=== PATIENT | male | born 1950 | race Two or more races ===

== ENCOUNTER 2017-12-24 17:54 | Emergency (ER) | payer OTHER ==
[2017-12-24] MEDS ORDERED: IBUPROFEN 600 MG TAB PO ONE (19:50)
--- NOTE | 2017-12-24 20:12 | EDPHY ---
H & P Time Seen by Provider: 12/24/17 20:11 HPI/ROS: Chief complaint. Fall HPI. Patient is a 59-year-old male trip and fall while at work today. Struck his chin his right knee his left palm in his left chest. He thinks he may be briefly lost consciousness. He has no dental trauma. Has no neck pain. He has left thoracic pain. He was caring markers in his pocket and fell on them so has pain in his left anterior chest. No shortness of breath. No abdominal pain. Abrasion to right knee but has been walking on it. Bruising to the base of the left thumb on the palm of the hand with painful range of motion. He is alert and conversational without change in vision ROS Constitutional. no fever/chills, no weakness Eyes. no problems with vision ENT. no sore throat, no nasal drainage Cardiovascular. chest pain on left Respiratory. no shortness of breath, no cough Abdominal. no abdominal pain, no nausea/vomiting, no diarrhea . no problems urinating MS. Abrasion right knee. Bruising base of thumb left palm. Left mid back pain. Anterior chest pain on the left. Skin. no rash Lymph. no swollen glands Neuro. no headache, no dizziness, no difficulty walking or with speech Past Medical/Surgical History: Past medical history seen for hypertension and diabetes Social History: , nonsmoker, no alcohol Smoking Status: Former smoker Physical Exam: General Appearance: Alert, mild distress. Vital signs are stable Eyes: Pupils equal and round no pallor or injection. ENT, Mouth: Mucous membranes are moist. Head is without any bumps or pain. No hemotympanum. No oral pharyngeal or dental trauma. Respiratory: There are no retractions, lungs are clear to auscultation. Cardiovascular: Regular rate and rhythm. Gastrointestinal: Abdomen is soft and nontender, no masses, bowel sounds normal. Neurological: Awake and alert, sensory and motor exams grossly normal. Skin: Abrasion to chin Musculoskeletal: Neck is supple nontender. Tenderness over T-spine without swelling; LS spine nontender. Left anterior chest wall pain without surface trauma Extremities abrasion right knee. Ecchymosis left thenar eminence. Psychiatric: Patient is oriented X 3, there is no agitation. Constitutional: Initial Vital Signs Temperature (C) 36.7 C 12/24/17 17:57 Heart Rate 76 12/24/17 17:57 Respiratory Rate 18 12/24/17 17:57 Blood Pressure 147/77 H 12/24/17 17:57 O2 Sat (%) 94 12/24/17 17:57 O2 Delivery Mode Room Air Allergies/Adverse Reactions: No Known Allergies Allergy (Verified 12/24/17 17:56) Home Medications: Medication Instructions Recorded Lisinopril 12/24/17 Metoprolol Succinate 12/24/17 Medical Decision Making - Diagnostics Imaging Results: Imaging Impressions Chest X-Ray 12/24/17 19:49 Impression: Cardiomegaly, without failure. Hand X-Ray 12/24/17 19:49 Impression: No acute osseous findings. Knee X-Ray 12/24/17 19:49 Impression: No acute osseous findings. Thoracic Spine X-Ray 12/24/17 20:20 Impression: Minimal anterior height reduction at T6-T9, possibly congenital or post traumatic (age indeterminate). X-ray chest, right knee, left hand interpreted by me is normal Hand x-ray interpreted by me is normal Knee x-ray interpreted by me is normal Thoracic spine minimal height reduction but really not tender on the spine. I do not think this represents acute fracture ED Course/Re-evaluation: Re-evaluation 9:00 p.m. Patient is stable. Patient and I discussed imaging results. We discussed treatment plan including criteria for return importance of follow-up and further evaluation. He expresses understanding and agreement Differential Diagnosis: I considered fracture, dislocation of the involved areas. It appears that these are abrasions and contusions. There is no evidence for concussion or closed head injury. - Data Points Medications Given: Discontinued Medications Ibuprofen (Motrin) 600 mg PO EDNOW ONE Stop: 12/24/17 19:51 Last Admin: 12/24/17 19:53 Dose: 600 mg Departure - Departure Disposition: Home, Routine, Self-Care Clinical Impression: Multiple contusions Fall Qualifiers: Encounter type: initial encounter Qualified Code(s): W19.XXXA - Unspecified fall, initial encounter Condition: Good Instructions: Contusion in Adults (ED) Additional Instructions: Ice to sore areas next 24 hr. Ibuprofen 600 mg every 6 hr for pain Return for worsening symptoms including confusion and worsening headache. Activity as tolerated. Recheck in 2-3 days if not improving Referrals: NONE *PRIMARY CARE P,. [Primary Care Provider] - As per Instructions Work Comp Ref/Restrictions [Outside] - As per Instructions Stand Alone Forms: Work Excuse
[2017-12-24 21:42] VITALS: BP 110/71
== END 2017-12-24 21:47 | disposition home or self-care (01) ==
DX: S00.81XA Abrasion of other part of head, initial encounter (principal); S80.01XA Contusion of right knee, initial encounter; W01.0XXA Fall on same level from slipping, tripping and stumbling without subsequent striking against object, initial encounter; Y92.63 Factory as the place of occurrence of the external cause; Y99.0 Civilian activity done for income or pay